=== PATIENT | female | born 1975 | race Caucasian/White ===

== ENCOUNTER 2021-09-17 16:56 | Emergency (ER) | payer OTHER, SELFPAY ==
[2021-09-17 17:06] VITALS: BP 187/87; PULSE 70; RESP 16; TEMP 37.1; O2SAT 100
--- NOTE | 2021-09-17 17:19 | ED.ANIMALBIT ---
HPI - Animal Bite General Chief Complaint: Animal Bite Stated Complaint: Cat Bite/Right Hand Time Seen by Provider: 09/17/21 17:18 Source: patient and RN notes reviewed Mode of arrival: ambulatory Limitations: no limitations History of Present Illness HPI narrative: 46-year-old female presents with concern for cat bite and scratch to her right hand and arm. Reports yesterday morning she was breaking up a cat fight and was bitten and scratched by one of the stray cats. She reports pain, swelling, redness to the dorsal aspect of the right hand and the lateral wrist. She denies body aches, chills, fever, sweats, drainage from the area. She denies intervention. MD complaint: animal bite Related Data Allergies Allergy/AdvReac Type Severity Reaction Status Date / Time No Known Allergies Allergy Verified 09/17/21 17:14 Review of Systems Review of Systems: CONSTITUTIONAL: Denies malaise, chills, sweats, or fever. CARDIOVASCULAR: Denies chest pain, palpitations, or edema. RESPIRATORY: Denies cough or dyspnea. GASTROINTESTINAL: Denies abdominal pain, nausea SKIN: Reports redness, swelling, pain to the dorsal right hand and lateral wrist. Reports scabbed scratch to the right MUSCULOSKELETAL: Denies myalgia. NEUROLOGIC: Denies numbness, weakness All systems reviewed & are unremarkable except as noted in HPI and below PMFSH Comments At time of signature, agree with nursing past medical, surgical, social and family history. There is no relevant family history pertinent to the presenting complaint Exam Narrative: GENERAL: Well-appearing, well-nourished, and in no acute distress. HEAD: Normocephalic, atraumatic. EYES: PERRLA, conjunctivae clear ENT: Mucous membranes moist. NECK: Supple. No lymphadenopathy CHEST: Clear to auscultation. No respiratory distress. HEART: Regular rate and rhythm. SKIN: Warm, dry. Erythema, edema without induration or fluctuation noted to the dorsal right hand with central scab. Scabbed linear abrasions noted to the right arm NEURO: Alert and oriented x3. PSYCH: Normal mood and affect Course Course Emergency Course: Patient is aware of diagnosis, understands and agrees to treatment plan. Anticipatory guidance given. Patient agrees to follow-up as directed and is aware of reasons to seek care at the emergency department. Portions of this record may have been created with voice recognition software Vital Signs Vital signs: Vital Signs Temperature 98.7 F 09/17/21 17:06 Pulse Rate 70 09/17/21 17:06 Respiratory Rate 16 09/17/21 17:06 Blood Pressure 187/87 H 09/17/21 17:06 Pulse Oximetry 100 09/17/21 17:06 Temperature 98.7 F 09/17/21 17:06 Pulse Rate 70 09/17/21 17:06 Respiratory Rate 16 09/17/21 17:06 Blood Pressure 187/87 H 09/17/21 17:06 Pulse Oximetry 100 09/17/21 17:06 Reviewed. Patient has been instructed to follow up with her primary care provider within the next week regarding her elevated blood pressure today. MDM - Animal Bite MDM Narrative Medical decision making narrative: Exam findings show no acute concerns or changes; patient is non-toxic appearing and is in no distress. Patient is appropriate for outpatient treatment and follow-up. Differential Diagnosis Differential diagnosis: Likely cat bite and other (Cat scratch, cellulitis, wound infection) Critical Care Time Critical Care Time Critical Care Time: No Discharge Plan Discharge Clinical Impression: Cat bite Qualifiers: Encounter type: initial encounter Qualified Code(s): W55.01XA - Bitten by cat, initial encounter Patient Disposition: Home, Self-Care Condition: Stable Instructions: Antibiotic Form, Animal Bite (ED) Additional Instructions: Please follow up with your Primary Care Doctor within 48-72 hours - call for an appointment. Rest and elevate affected area; apply moist heat 3-4 times daily for 10-15 minutes. Take Motrin 600mg every 8 hours with food for pain. Please take Antib
[2021-09-17 17:20] VITALS: BP 187/87; PULSE 70; RESP 16; TEMP 37.1; O2SAT 100
== END 2021-09-17 17:31 | disposition home or self-care (01) ==
PROVIDERS: Emergency Provider Nurse Practitioner
DX: S61.451A Open bite of right hand, initial encounter (principal); S40.811A Abrasion of right upper arm, initial encounter; W55.01XA Bitten by cat, initial encounter
CPT/HCPCS: 99213; G0463